=== PATIENT | female | born 1960 | race Caucasian/White ===

== ENCOUNTER → 2017-09-04 | Outpatient (CLI) | payer OTHER ==
[~2017-09-04] MED LIST: ALPR1TAB6 PO; ATOR40TA78 PO; CARI350T PO; CHOL200024 PO; CINN500C2 PO; FENO135C PO; FENO67CA PO; FLAX100029 PO; GLUC-121 PO; HYDR-3307 PO; LANS15TA6 PO; LEVO75TA PO; MULT-717 PO; NAPR220C2 PO; PARO30TA45 PO; VITA1TAB19 PO
== END | disposition home or self-care (01) ==
LOC: CFH 13:35
PROVIDERS: ATTEND Surgery
DX: N60.12 Diffuse cystic mastopathy of left breast (principal)
CPT/HCPCS: 77066

== ENCOUNTER → 2019-01-20 | Outpatient (CLI) | payer OTHER | END | disposition home or self-care (01) | LOC: CFH 12:00 | PROVIDERS: ATTEND Internal Medicine Geriatric Medicine | DX: Z12.31 Encounter for screening mammogram for malignant neoplasm of breast (principal) | CPT/HCPCS: 77063; 77067 ==